=== PATIENT | male | born 2000 | race Caucasian/White ===

== ENCOUNTER 2024-04-14 12:09 | Emergency (ER) | payer OTHER, SELFPAY ==
[2024-04-14 12:18] VITALS: BP 133/82; PULSE 85; RESP 20; TEMP 36.8; O2SAT 98
--- NOTE | 2024-04-14 13:16 | ED_ITS ---
HPI - URI/Sore Throat General Chief Complaint: Upper Respiratory Infection Stated Complaint: dizzy/cough/nausea Time Seen by Provider: 04/14/24 13:00 Source: patient, RN notes reviewed and old records reviewed Mode of arrival: ambulatory Limitations: no limitations History of Present Illness HPI Narrative: 24 year old male presents to [facility] care with 3 day history of cough, headache, sore throat with complaints of feeling weak and lightheaded at work today and vomited. Patient reports that he has had intermittent low grade fever, Patient reports that he had to leave work today due to vomiting and dizziness. Patient reports that many of his co-workers have been ill also.Patient reports that his cough has been harsh at times has been taking cough medication OTC for his symptoms. MD elicited complaint: fever (low grade reported), cough, sore throat and other (dizzy,nausea) Onset (ago): day(s) (3 days increased symptoms today) Severity: moderate Able to tolerate fluids by mouth: Yes Treatments prior to arrival: other (OTC cough medication) Related Data Allergies Allergy/AdvReac Type Severity Reaction Status Date / Time No Known Allergies Allergy Verified 04/14/24 12:54 Review of Systems Review of Systems: CONSTITUTIONAL: Reports malaise, chills, sweats, or fever. EYES: Denies visual changes, redness, or discharge. ENT: Reports rhinorrhea, congestion, sinus pain,no otalgia and sore throat. CARDIOVASCULAR: Denies chest pain, palpitations, or edema. RESPIRATORY: Reports cough.? Denies dyspnea. GASTROINTESTINAL: Denies abdominal pain, nausea,one incident of vomiting,no diarrhea SKIN: Denies rash or itching. MUSCULOSKELETAL: Denies myalgia. NEUROLOGIC: reports headache. All systems reviewed & are unremarkable except as noted in HPI and below PMFSH Social History Social History (Updated 04/15/24 @ 10:42 by Ingrid Curtis NP) Smoking status: Never smoker Alcohol intake: current Alcohol use details: social Substance use type: does not use Living arrangements: with family Gender identity (if verbalized by the patient): Male Comments At time of signature, agree with nursing past medical, surgical, social and family history. There is no relevant family history pertinent to the presenting complaint Exam Narrative: GENERAL: Well-appearing, well-nourished, and in no acute distress. HEAD: Normocephalic EYES: PERRLA, conjunctivae clear ENT: Nares clear, turbinates edematous and erythematous, clear discharge. Mucous membranes moist. TM pearly nunez with dull light reflex bilaterally; no tragal tenderness. Oropharynx erythematous without lesions. Tonsils red not enlarged and without exudate, no drooling, no hoarseness, no trismus, uvula midline.post nasal drainage NECK: Supple. No lymphadenopathy CHEST: Clear to auscultation, breath sounds equal. No wheezing, rhonchi, rales, or stridor. No respiratory distress, speaks in full sentences.cough noted SAO2 98% on room air HEART: Regular rate and rhythm. No murmur heard. SKIN: Warm, dry, no rash. NEURO: Alert and oriented x3. PSYCH: Normal mood and affect Course Course Emergency Course: Patient is aware of diagnosis, understands and agrees to treatment plan.? Anticipatory guidance given.? Patient agrees to follow-up as directed and is aware of reasons to seek care at the emergency department. Portions of this record may have been created with voice recognition software Level of Care: Express Care Visit Vital Signs Vital signs: Vital Signs Temperature 36.8 C 04/14/24 12:18 Pulse Rate 85 04/14/24 12:18 Respiratory Rate 20 04/14/24 12:18 Blood Pressure 133/82 04/14/24 12:18 Pulse Oximetry 98 04/14/24 12:18 Oxygen Delivery Room Air 04/14/24 12:18 Temperature 36.8 C 04/14/24 12:18 Pulse Rate 85 04/14/24 12:18 Respiratory Rate 20 04/14/24 12:18 Blood Pressure 133/82 04/14/24 12:18 Pulse Oximetry 98 04/14/24 12:18 Oxygen Delivery Room Air 04/14/24 12:18 Reviewed MDM - URI/Sore Throat MDM Narrative Medical decision making narrative: Differential diagnosis considered: Carcamo virus, strep pharyngitis, allergic rhinitis, upper respiratory tract infection, sinusitis, rhinosinusitis, nasopharyngitis. viral pharyngitis, otitis media, otitis externa, pneumonia, bronchitis, viral cough syndrome, viral syndrome, and influenza.? Exam findings show no acute concerns or changes; patient is non-toxic appearing and is in no distress.? Patient is appropriate for outpatient treatment and follow-up. Differential Diagnosis Differential diagnosis: Likely upper respiratory infection, sinusitis, viral infection, influenza, pharyngitis and other (strep pharyngitis, COVID) Medical Records Attestation: I reviewed the patient's medical records. Lab Data Attestation: I reviewed the patient's lab results. Lab results narrative: strep screen negative, culture sent, Influenza A negative, Influenza B negative, COVID antigen negative Labs: Lab Results 04/14/24 Range/Units 12:45 POC Influenza A Ag Negative (Negative) POC Influenza B Ag Negative (Negative) POC SARS CoV-2 Ag Negative (Negative) POC Grp A Strep Screen Negative (Negative) Critical Care Time Critical Care Time Critical Care Time: No Discharge Plan Discharge Clinical Impression: Upper respiratory infection, Cough Patient Disposition: Home, Self-Care Condition: Stable Instructions: Antibiotic Form, Upper Respiratory Infection (ED), Acute Cough (ED) Additional Instructions: Increase fluids especially juices and water Nmaz-chg-[id number] cough and cold medicine of your choice for your symptoms Zyrtec Claritin or Basilia daily Cough tablets as directed for cough--do not bite, chew or suck on--swallow whole Tylenol or ibuprofen Steroids as directed--take with food heat to the face 20-30 minutes 4-6 times a day for pain Salt water gargles, throat lozenges or throat sprays as desired If your symptoms persist, change or worsen significantly before you can contact your personal physician then please, without delay, go to the emergency department for further evaluation. Follow-up with PCP in 7-10 days or sooner if needed Follow up with PCP soon in regards to your blood pressure which is elevated above threshold for referral. Blood pressure above 120/80 may indicate pre- hypertension. 133/82 medication for nausea as ordered Prescriptions: New ondansetron 4 mg tablet,disintegrating 4 mg PO Q6H PRN (Reason: nausea and vomiting) Qty: 10 0RF methylprednisolone [Medrol (Abhijeet)] 4 mg tablets,dose pack See Rx Instructions .ROUTE .COMPLEX Qty: 21 0RF Rx Instructions: orally per package directions benzonatate 200 mg capsule 200 mg PO TID PRN (Reason: cough) Qty: 14 0RF Follow-up/Referrals: PHYSICIAN,INSTRUCTOR INDUSTRIAL DESIGN [Primary Care Provider] - Stand Alone Forms: Work/School Release IP Time of Disposition: 13:30 Quality Floyd Coma Scale Eyes: Open Verbal: Oriented and Alert Motor: Follows Commands Floyd Coma Total Score: 15
[2024-04-14 13:36] LABS: EDCOVIDSCREEN Negative (Negative); EDINFLUASCREEN Negative (Negative); EDINFLUBSCREEN Negative (Negative); EDSTREPNEGPOS1 Negative (Negative)
== END 2024-04-14 13:40 | disposition home or self-care (01) ==
PROVIDERS: Emergency Provider Registered Nurse
DX: J06.9 Acute upper respiratory infection, unspecified (principal); Z20.822 Contact with and (suspected) exposure to COVID-19
CPT/HCPCS: 87081; 87426; 87804; 87880; 99213; G0463

== ENCOUNTER 2024-04-18 08:36 | Emergency (ER) | payer OTHER, SELFPAY ==
[2024-04-18 08:42] VITALS: BP 135/82; PULSE 94; RESP 20; TEMP 36.3; O2SAT 100
--- NOTE | 2024-04-18 09:03 | ED_ITS ---
HPI - URI/Sore Throat General Chief Complaint: Upper Respiratory Infection Stated Complaint: cough Time Seen by Provider: 04/18/24 09:03 Source: patient Mode of arrival: ambulatory Limitations: no limitations History of Present Illness HPI Narrative: 24-year-old male presents with complaint continued coughing . Patient states he was sent home from work today due to cough. Was seen here 4 days ago with same complaint. Was given Tessalon Perles and states not helping. Afebrile. No chest pain or shortness of breath. All systems reviewed and negative except as noted above. Related Data Allergies Allergy/AdvReac Type Severity Reaction Status Date / Time No Known Allergies Allergy Verified 04/14/24 12:54 Review of Systems Review of Systems: CONSTITUTIONAL: Denies fever, chills, or sweats. EYES: Denies visual changes, redness, or discharge. ENT: Denies rhinorrhea, congestion, sore throat, or otalgia. CARDIOVASCULAR: Denies chest pain, palpitations, or edema. RESPIRATORY: Reports cough. Denies dyspnea. GASTROINTESTINAL: Denies abdominal pain, nausea, vomiting, or diarrhea. GENITOURINARY: Denies dysuria or hematuria. SKIN: Denies rash or itching. MUSCULOSKELETAL: Denies back pain, joint pain, or myalgia. NEUROLOGIC: Denies headache, numbness, or weakness. PSYCHIATRIC: Denies anxiety or depression. All other systems reviewed are negative, except as documented in HPI. REPLACED BY [facility] Social History Social History (Updated 04/15/24 @ 10:42 by Ingrid Curtis NP) Smoking status: Never smoker Alcohol intake: current Alcohol use details: social Substance use type: does not use Living arrangements: with family Gender identity (if verbalized by the patient): Male Comments At time of signature, agree with nursing past medical, surgical, social and family history. There is no relevant family history pertinent to the presenting complaint. Exam Narrative: GENERAL: This is a well-nourished, well-developed patient, in no apparent distress. HEAD: normocephalic, atraumatic. EYES: PERRL. Sclera clear/white. Vision is grossly intact. EARS: External ears normal, auditory canals clear and without drainage, TMs normal without perforation. Hearing grossly intact. NOSE: External nose normal with no obvious nasal discharge, nares without redness, no rhinorrhea. THROAT: Mucous membranes moist, posterior pharynx clear. NECK: Neck supple, non-tender without lymphadenopathy, masses or thyromegaly. CARDIOVASCULAR: Regular rate and rhythm without murmurs, gallops, or rubs. RESPIRATORY: Clear to auscultation. Breath sounds equal bilaterally. No wheezes, rales, or rhonchi. SKIN: warm, Dry, intact with no suspicious lesions or rash, good texture and turgor. NEURO: awake, alert, and oriented to person, place and time. There were no obvious focal neurologic abnormalities. EXTREMITIES: No joint tenderness, effusion, or edema noted Course Course Level of Care: Express Care Visit Vital Signs Vital signs: Vital Signs Temperature 36.3 C L 04/18/24 08:42 Pulse Rate 94 04/18/24 08:42 Respiratory Rate 20 04/18/24 08:42 Blood Pressure 135/82 04/18/24 08:42 Pulse Oximetry 100 04/18/24 08:42 Oxygen Delivery Room Air 04/18/24 08:42 Temperature 36.3 C L 04/18/24 08:42 Pulse Rate 94 04/18/24 08:42 Respiratory Rate 20 04/18/24 08:42 Blood Pressure 135/82 04/18/24 08:42 Pulse Oximetry 100 04/18/24 08:42 Oxygen Delivery Room Air 04/18/24 08:42 reviewed MDM - URI/Sore Throat MDM Narrative Medical decision making narrative: Patient is aware of diagnosis, understands and agrees to treatment plan. Anticipatory guidance given. Patient agrees to follow-up as directed and is aware of reasons to seek care at the emergency department. Portions of this record may have been created with voice recognition software patient is well-appearing. Was sent home from work today by medical office due to his continued cough. States they do not want him coughing at work. Will prescribe patient azithromycin, Medrol Dosepak due to his continue symptoms. Did educate on viral symptoms. Differential Diagnosis Differential diagnosis: Likely upper respiratory infection, viral infection and bronchitis Discharge Plan Discharge Clinical Impression: Upper respiratory infection with cough and congestion Patient Disposition: Home, Self-Care Condition: Stable Instructions: Antibiotic Form, Upper Respiratory Infection (ED) Additional Instructions: take medications as prescribed. Continue taking [id number] Mucinex as directed on packaging. Drink at least 64 oz of water a day. Place cool mist humidifier in bedroom where you sleep. Follow-up with your primary care physician if symptoms are not improving. Prescriptions: New azithromycin 250 mg tablet See Rx Instructions .ROUTE .COMPLEX Qty: 6 0RF Rx Instructions: For 250 mg dose pack: take 500 mg today (day 1), then 250 mg for 4 days (days 2-5) methylprednisolone [Medrol (Abhijeet)] 4 mg tablets,dose pack See Rx Instructions PO .COMPLEX Qty: 21 0RF Rx Instructions: orally per package directions Follow-up/Referrals: PHYSICIAN,LAW RESEARCHER [Primary Care Provider] - Stand Alone Forms: Work/School Release IP Time of Disposition: 09:09
== END 2024-04-18 09:15 | disposition home or self-care (01) ==
PROVIDERS: Emergency Provider Nurse Practitioner Family
DX: J06.9 Acute upper respiratory infection, unspecified (principal)
CPT/HCPCS: 99213; G0463

== ENCOUNTER 2024-11-16 12:36 | Emergency (ER) | payer OTHER, SELFPAY ==
--- NOTE | ~2024-11-16 | XR_ITS ---
EXAM/ PROCEDURE: XR wrist LT min 3V - 11/16/2024 13:20 CDT HISTORY: 24 years old Male with FALL DOWN STAIRS, MED AND LAT GEN PAIN COMPARISON: None available TECHNIQUE: Four view(s) FINDINGS/ IMPRESSION: There are no fractures or dislocations.Joint spaces are within normal limits. Reviewed, dictated and finalized at location A.
--- OUTSIDE RECORDS SUMMARY | 2024-11-16 12:39 | XMS_ITS | Encounter Summary ---
Author Organization [facility] Address [address] [place] [address] Phone Care Team Providers Care Gravel Roofer Name Role Phone Teresa Henry MD Primary Care Provid er Encounter Details Date Type Department Care Team (Late st Contact Info) Description 07/08/2017 Orders Only [facility] ProviderTony MD [address] [place] [id number] Social History Tobacco Use Types Packs/Day Years Used Date Smoking Tobacco: Never Assessed Sex and Gender Information Value Date Recorded Sex Assigned at Not on file 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 Historical Provider Final Res ult documented in this encounter Visit Diagnoses Not on filedocumented in this encounter Care Teams Gravel Roofer Relationship Specialty Start Date End Date RicoterTeresa coleman MD PCP - General 07/03/17 documented as of this encounter
--- OUTSIDE RECORDS SUMMARY | 2024-11-16 12:39 | XMS_ITS | Referral Summary ---
Author Organization [facility] Address [address] [place] [address] Care Team Providers Care Framing And Hanging Name Role Phone Teresa Henry MD Primary Care Provid er Allergies No known active allergies Medications No known medications Active Problems Problem Noted Date Diagnosed Date Annual physical exam 08/29/2022 Assessment & Plan (08/29/2022 1:54 PM CDT): Doing well. BMI:38.7 Obese Routine labs ordered - BMP, lipid Preventative Screening Due: N/a Dietary and exercise recommendations given today. Recommend exercise at least 30 minutes moderate to vigorous exercise and some strength training most days of the week. (minimum 150 minutes weekly) Discussed MyPlate recommendations and increasing fruits and vegetables Age appropriate counseling provided - Safe sex practices, Seat belt use, alcohol/drug avoidance Vaccines due - Meningococcal B (handout given) RTC annually for f/u Class 2 obesity due to exces s calories without serious comorbidity with body mass index (BMI) of 38.0 to 38.9 in adult 08/29/2022 Social History Tobacco Use Types Packs/Day Years Used Date Smoking Tobacco: Never Passive Smoke Exposure: Never Smokeless Tobacco: Never AUDIT-C Answer Date Recorded Q1: How often do you have a drink containing alc ohol? Monthly or less 08/29/2022 Q2: How many drinks containi ng alcohol do you have on a typical day when you are drinking? 1 or 2 08/29/2022 Q3: How often do you have si x or more drinks on one occasion? 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 Gender Identity Not on file Sexual Orientation Not on file Last Filed Vital Signs Vital Sign Reading Time Taken Comments Blood Pressure 129/86 08/29/2022 1:21 PM CDT Pulse 84 08/29/2022 1:21 PM CDT Temperature 36.4 C (97.5 F) 08/29/2022 1:21 PM CDT Respiratory Rate 18 08/29/2022 1:21 PM CDT Oxygen Saturation 98% 08/29/2022 1:21 PM CDT Inhaled Oxygen Concentration - - Weight 133.2 kg (293 lb 9.6 oz) 08/29/2022 1:21 PM CDT Height 185.4 cm (6' 1) 08/29/2022 1:21 PM CDT Body Mass Index 38.74 08/29/2022 1:21 PM CDT Plan of Treatment Not on file Insurance [employer] [employer]ETNA [facility] [employer] [place] Care Teams Framing And Hanging Relationship Specialty Start Date End Date Teresa Henry MD PCP - General 07/03/17
--- OUTSIDE RECORDS SUMMARY | 2024-11-16 12:39 | XMS_ITS | Clinical Summary ---
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 Gender Identity Not on file Sexual Orientation Not on file Obstetrics History Last Filed Vital Signs Vital Sign Reading [...] 08/29/2022 1:21 PM CDT Plan of Treatment Health Maintenance Due Date Last Done Comments Hepatitis C Screening 2002 Meningococcal B Vaccine (1 o f 2 - Standard) 2018 Depression Screening 08/30/2023 08/29/2022 Regular Well Visit/Exam 18-64 08/30/2023 08/29/2022 DTaP/Tdap/Td Vaccine (7 - Td or Tdap) 12/22/2023 12/21/2013, 12/13/2007, 04/12/2003, Additional history exists Influenza Vaccine (Season Ended) 2025 03/08/2021, 02/29/2020, 01/31/2019, Additional history exists Hepatitis B Screening Completed 2002 , 2002, 2002 Pneumococcal vaccine <65 Completed 003, 2002, 2002, Additional history exists Varicella Vaccines Completed 01/13/2008, 01/11/2003 HPV Vaccines Completed 07/14/2014, 11/0 08/2013, 12/21/2013 Insurance [employer] [facility] [facility] Care Teams Aba Therapist Relationship Specialty Start Date End Date Teresa Henry MD [facility] - General 07/03/17
--- OUTSIDE RECORDS SUMMARY | 2024-11-16 12:39 | XMS_ITS | Encounter Summary ---
Author Organization [facility] Address [address] [place] [address] Phone Care Team Providers Care Manager Trade Marketing Name Role Phone Teresa Henry MD Primary Care Provid er Encounter Details Date Type Department Care Team (Late st Contact Info) Description 07/08/[address] 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 Historical Provider Final Res ult documented in this encounter Visit Diagnoses Not on filedocumented in this encounter Care Teams Manager Trade Marketing Relationship Specialty Start Date End Date RicoterTeresa coleman MD PCP - General 07/03/17 documented as of this encounter
--- OUTSIDE RECORDS SUMMARY | 2024-11-16 12:39 | XMS_ITS | Clinical Summary ---
Author Organization [facility] Address [address] [place] [address] Phone Care Team Providers Care Child Abuse Worker Name Role Phone Provider, None Primary Care Provider Unavailabl e Allergies No known active allergies Medications albuterol (PROVENTIL HFA, VENTOLIN HFA) 108 (90 Base) MCG/ACT Aerosol Solution take 2 Puffs by inhalation every 4 hours as needed for Wheezing. Active albuterol (PROVENTIL, VENTOLIN) (2.5 MG/3ML) 0.083% Nebulizer Soln 2.5 mg by Nebulization route. Active beclomethasone (QVAR) 80 MCG/ACT Aerosol Solution take 2 Puffs by inhalation 2 times daily. 7.3 g 7 Active Additional Information Patient not taking.Reported on 07/22/2022 fluticasone (FLONASE) 50 MCG/ACT Suspension 2 Sprays by Nasal route daily. Use in each nostril as directed. 1 Bottle 3 7 Active Additional Information Patient not taking.Reported on 07/22/2022 Respiratory Therapy Supplies (NEBULIZER/TUBI NG/MOUTHPIECE) Kit 1 Applicator by Does not apply route as needed for Other (wheezing, cough). 1 Each 7 Active Additional Information Patient not taking.Reported on 07/22/2022 predniSONE (DELTASONE) 50 MG Tablet Take 1 Tab by mouth daily. 5 Tab 7 Active Additional Information Patient not taking.Reported on 05/29/2022 montelukast (SINGULAIR) 10 MG Tablet TAKE 1 TABLET BY MOUTH EVERY EVENING 90 Tab 11/02/201 8 Active Additional Information Patient not taking.Reported on 07/22/2022 albuterol (ProAir HFA) 108 (90 Base) MCG/ACT Aerosol SolutionIndicat ions:COVID-19 take 2 Puffs by inhalation every 4 hours as needed for Wheezing or Cough. 18 g 3 Active Additional Information Patient not taking.Reported on 07/22/2022 Active Problems No known active problems Immunizations Immunization Administration Dates Next Due DTAP VACCINE 2002,2002,2002 DTAP VACCINE, UNSPECIFIED FORMULATION 12/13/2007 ,04/12/2003 Hepatitis A Vaccine, Pediatric/adolescent, 2 Dose Schedule 07/14/2014,12/21/2013 Hepatitis B Vaccine, Pediatric/adolescent 2002,2002,2002 Hib Vaccine,unspecified Formulation 07/2002,2002,2002,03/14 Human Papillomavirus Vaccine (HPV), quadrivalent 07/14/2014,03/14/2014,12/21/2013 Inactivated Polio Vaccine 12/13/2007,07/2002,2002,03/14 Influenza Vaccine greater than 3 yrs 03/08/2008 Influenza Vaccine, Quadrivalent, PF 03/07/2016,1 ,03/14/2014 Influenza Vaccine,unspecifie d Formulation 06/06/2004,05/06/2004,05/12/2003,04/12 MMR Vaccine 01/13/2008,01/11/2003 Meningococcal Vaccine 12/21/2013 Pneumococcal Vaccine Peds - 7 Valent 07/2002,2002,2002,03/14 TDAP Vaccine 12/21/2013 Varicella Vaccine Live 01/13/2008,01/11/2003 Family History Medical History Relation Name Comments No Known Problems Brother Depression Father anxiety Diabetes Father Hypertension Father Kidney Stones Father No Known Problems Maternal Grandfather Cancer Maternal Grandmother brain Kidney Stones Mother Thyroid Disease Mother Heart Disease Paternal Grandfather Colon Cancer Paternal Grandmother No Known Problems Sister Relation Name Status Comments Brother Alive Father Alive Maternal Grandfather Alive Maternal Grandmother Mother Alive Paternal Grandfather Paternal Grandmother Sister Alive Social History Tobacco Use Types Packs/Day Years Used Date Smoking Tobacco: Never Smokeless Tobacco: Never Tobacco Cessation:Counseling Given: Not Answered Alcohol Use Standard Drinks/Week Comments No 0 (1 standard drink = 0.6 oz pur e alcohol) Sexually Active Control Partners Comments Never Sex and Gender Information Value Date Recorded Sex Assigned at Not on file Legal Sex Male 11:34 PM CDT Gender Identity Not on file Sexual Orientation Not on file Last Filed Vital Signs Vital Sign Reading Time Taken Comments Blood Pressure 108/80 07/22/2022 3:32 PM CDT Pulse 88 07/22/2022 3:32 PM CDT Temperature 36.7 C (98.1 F) 07/22/2022 3:32 PM CDT Respiratory Rate 18 07/22/2022 3:32 PM CDT Oxygen Saturation 97% 07/22/2022 3:32 PM CDT Inhaled Oxygen Concentration - - Weight 99.3 kg (219 lb) 07/22/2022 3:32 PM CDT Height 167.6 cm (5' 6) 02/25/2017 8:13 AM CDT Body Mass Index - - Plan of Treatment Health Maintenance Due Date Last Done Comments Hepatitis C Virus (HCV) Screening 2002 Meningococcal B Immunization (1 of 2 - Standard) 2018 DTaP/Tdap/Td Immunization (7 - Td or Tdap) 12/22/2023 12/21/2013, 12/13/2007, 04/12/2003, Additional history exists SARS-COV-2 Immunization ( season) 2024 Influenza Immunization (#1) 01/09/202502/09, 02/29/2020, 01/31/2019, Additional history exists Respiratory Syncytial Virus (RSV) Immunization (Adult) (1 - 1-dose 75+ series) 2077 Hepatitis B Immunization Completed 003, 2002, 2002 Pneumococcal Immunization Combined Aged Out 04/12/2003, 2002, 2002, Additional history exists No longer eligible based on patient's age to complete this topic Polio (IPV) Immunization Discontinued 008, 04/12/2003, 2002, Additional history exists Measles Mumps Rubella (MMR) Immunization Discontinued 01/13/2008, 01/11/2003 Varicella Immunization Discontinued 01/13/2008, 2002 Hepatitis A Immunization Discontinued 07/14/2014, 12/09 Human Papillomavirus (HPV) Immunization Completed 07/14/2014, 03/14/2014, 12/21/2013 Meningococcal Immunization (ACWY) Completed 01/31/2019, 12/21/2013 Rotavirus Immunization Aged Out No lo nger eligible based on patient's age to complete this topic Insurance MEDICAID [employer] MEDICAID [place] Care Teams Child Abuse Worker Relationship Specialty Start Date End Date Provider, None [place] PCP - General 05/29/22
[2024-11-16 12:42] VITALS: BP 149/89; PULSE 112; RESP 16; TEMP 36.2; O2SAT 98
--- NOTE | 2024-11-16 12:48 | ED.UPPEXIN ---
HPI - Extremity Injury (Upper) General Stated Complaint: Dr Gaspar, Left Wrist Injury Time Seen by Provider: 11/16/24 13:20 Source: patient and RN notes reviewed Mode of arrival: ambulatory Limitations: no limitations History of Present Illness HPI narrative: 24-year-old male presents with concern for left wrist pain. He reports he fell down the stairs yesterday and has been having wrist pain since then. He is right handed. He reports pain is bilateral and worsens with moving the wrist. He has used an George wrap. He denies any decreased strength, sensation range of motion digits. He was sent home from work because he had his wrist wrapped in an George wrap. complaint: injury to: left and wrist Related Data Home Medications ?Medication ?Instructions ?Recorded ?Confirmed ?Last Taken ?Type No Home Medications 11/16/24 11/16/24 Unknown History Allergies Allergy/AdvReac Type Severity Reaction Status Date / Time No Known Allergies Allergy Verified 11/16/24 12:50 Review of Systems Review of Systems: CONSTITUTIONAL: Denies malaise, chills, sweats, or fever. CARDIOVASCULAR: Denies chest pain, palpitations, or edema. RESPIRATORY: Denies cough or dyspnea. SKIN: Denies rash or itching, bruising, redness MUSCULOSKELETAL: Reports left wrist pain and swelling NEUROLOGIC: Denies numbness, weakness All systems reviewed & are unremarkable except as noted in HPI and below PMFSH Social History Social History (Updated 04/15/24 @ 10:42 by Ingrid Curtsi NP) Smoking status: Never smoker Alcohol intake: current Alcohol use details: social Substance use type: does not use Living arrangements: with family Gender identity (if verbalized by the patient): Male Comments At time of signature, agree with nursing past medical, surgical, social and family history. There is no relevant family history pertinent to the presenting complaint Exam Narrative: GENERAL: Well-appearing, well-nourished, and in no acute distress. HEAD: Normocephalic, atraumatic. EYES: PERRLA, conjunctivae clear NECK: Supple. CHEST: Speaks in full sentences. No respiratory distress. HEART: Regular rate and rhythm. Normal and equal peripheral pulses. EXTREMITIES: Left wrist, hand, digits have grossly normal strength and sensation, normal range of motion. Mild circumferential wrist edema, no erythema, warmth, ecchymosis. Normal sensation with sensitivity to light touch and pain. Ulnar tenderness. No open wounds, no skin tenting, no devitalized tissue or atrophy, no trophic changes, no obvious deformity, alignment normal, nearby joints and structures intact. Distal pulses palpable and equal bilaterally, skin warm, dry, pink. Capillary refill less than 3 seconds. SKIN: Warm, dry, no rash. NEURO: Alert and oriented x3. PSYCH: Normal mood and affect Course Course Emergency Course: Patient is aware of diagnosis, understands and agrees to treatment plan. Anticipatory guidance given. Patient agrees to follow-up as directed and is aware of reasons to seek care at the emergency department. Portions of this record may have been created with voice recognition software Level of Care: Express Care Visit Vital Signs Vital signs: Vital Signs Temperature 97.1 F L 11/16/24 12:42 Pulse Rate 112 H 11/16/24 12:42 Respiratory Rate 16 11/16/24 12:42 Blood Pressure 149/89 H 11/16/24 12:42 Pulse Oximetry 98 11/16/24 12:42 Oxygen Delivery Room Air 11/16/24 12:42 Temperature 97.1 F L 11/16/24 12:42 Pulse Rate 112 H 11/16/24 12:42 Respiratory Rate 16 11/16/24 12:42 Blood Pressure 149/89 H 11/16/24 12:42 Pulse Oximetry 98 11/16/24 12:42 Oxygen Delivery Room Air 11/16/24 12:42 Reviewed. MDM - Extremity Injury (Upper) MDM Narrative Medical decision making narrative: Patients injury and pain is consistent with musculoskeletal etiology. No signs of neurological or vascular compromise on exam. Compartments and tissues are soft without signs of compartment syndrome. Pain is felt appropriate for further evaluation on an outpatient basis. Imaging Data My impression: Images reviewed, interpreted by radiologist, agree, see report. Radiologist's impression: EXAM/ PROCEDURE: XR wrist LT min 3V - 11/16/2024 13:20 CDT HISTORY: 24 years old Male with FALL DOWN STAIRS, MED AND LAT GEN PAIN COMPARISON: None available TECHNIQUE: Four view(s) FINDINGS/ IMPRESSION: There are no fractures or dislocations.Joint spaces are within normal limits. Critical Care Time Critical Care Time Critical Care Time: No Discharge Plan Discharge Clinical Impression: Sprain of left wrist Patient Disposition: Home Condition: Stable Instructions: Wrist Sprain (ED) Additional Instructions: Your x-ray is normal Avoid activities that cause pain until the pain subsides. Ice to the area 20-30 minutes 4-6 times a day Elevate above heart Elastic wrap as needed for comfort for the next 5-7 days Tylenol for lesser pain Ibuprofen regularly for the next 2-3 days for the inflammation Follow up with your primary care provider if the condition is not improving within 1 week. If the condition worsens with numbness, tingling, decrease sensation with weakness seek treatment in the emergency room immediately. Patient Language: Uzbek Prescriptions: No Action azithromycin 250 mg tablet See Rx Instructions .ROUTE .COMPLEX Qty: 6 0RF Rx Instructions: For 250 mg dose pack: take 500 mg today (day 1), then 250 mg for 4 days (days 2-5) methylprednisolone [Medrol (Abhijeet)] 4 mg tablets,dose pack See Rx Instructions PO .COMPLEX Qty: 21 0RF Rx Instructions: orally per package directions Follow-up/Referrals: PHYSICIAN,ORTHOPEDIC RADIOLOGIC TECHNOLOGIST [Primary Care Provider] - Stand Alone Forms: Work/School Release IP Time of Disposition: 13:38
== END 2024-11-16 13:40 | disposition home or self-care (01) ==
PROVIDERS: Emergency Provider Nurse Practitioner
DX: S63.502A Unspecified sprain of left wrist, initial encounter (principal); W10.9XXA Fall (on) (from) unspecified stairs and steps, initial encounter
CPT/HCPCS: 73110; 99213; G0463